=== PATIENT | male | born 2000 | race African-American/Black ===

== ENCOUNTER 2020-03-03 15:40 | Outpatient (REF) | payer BC, SELFPAY ==
[2020-03-04 04:34] LABS: HBS Num1 7.23 mIU/mL (0-7.99); HBc Num1 0.06 S/CO (0.00-0.79); HBsAGNum1 0.21 S/CO (0.00-0.99); HIV AB/AG Nonreactive (Nonreactive); HIV Num 1 0.07 S/CO (0.00-0.99); Hepatitis B Core Antibody Nonreactive (Nonreactive); Hepatitis B Surface Antigen Negative (Negative); ~Hepatitis B Surface Antibody NONREACTIVE (Nonreactive)
== END 2020-03-03 15:41 | disposition home or self-care (01) ==
LOC: HO.LAB 15:40
PROVIDERS: Visit Provider Hospitalist
DX: Z00.00 Encounter for general adult medical examination without abnormal findings (principal)
CPT/HCPCS: 86704; 86706; 87340; 87389

== ENCOUNTER → 2020-03-21 09:30 | Outpatient (REF) | payer BC, SELFPAY ==
--- NOTE | 2020-03-21 09:43 | CA_ITS ---
Transthoracic Echocardiogram Patient (Last, First, Middle): Adam Smith J Gender: Male Date of : 2000 Age: 20 Procedure Date: 03/21/2020 Procedure Type: Transthoracic Echocardiogram Location: OP Height: 167.64 cm Weight: 68.04 kg BSA: 1.77 m2 Heart Rate: bpm BP: 122 / 70 mmHg Business Banking Sales Assistant: Referring MD: Tariq Vera DO Solar Crew Member: Kristopher Alejandra MD Symptoms: CHEST PAIN Study Quality: Excellent ECG Rhythm: Sinus Conclusions: - Essentially normal study Findings Left Ventricle Normal left ventricular size, thickness, and systolic function. The visually estimated ejection fraction is between 65-70%. There is no evidence of regional wall motion abnormalities. Diastolic function is normal for age. Right Ventricle Normal right ventricular cavity size and systolic function. Atria Both atria are normal in size. There is no evidence of interatrial shunt. Aortic Valve Normal aortic valve structure and function. There is no aortic valve stenosis. There is no aortic valve regurgitation. Mitral Valve Normal mitral valve structure and function. There is trace mitral valve regurgitation. There is no mitral valve stenosis. Pulmonic Valve The pulmonic valve is likely normal. Tricuspid Valve Normal tricuspid valve structure. There is trace tricuspid valve regurgitation. The right ventricular systolic pressure is normal. The right ventricular systolic pressure is 21 mmHg. Normal right atrial pressure. There is no evidence of pulmonary hypertension. Great Vessels All visible segments of the aorta are normal in size. The visualized portions of the pulmonary artery and branches are normal. Venous The inferior vena cava is normal in size and collapses greater than 50% with inspiration. Pericardium/Pleural There is no evidence of pericardial effusion. Prior Study Comparison No prior study available for comparison. Measurements 2D Linear Measurements IVSd: 1.34 0.6-0.9/0.6-1.0 cm LVIDd: 4.52 3.9-5.3/4.2-5.9 cm LVIDd Index: 2.55 2.4-3.2/2.2-3.1 cm/m2 LVIDs: 2.80 2.0-3.6 cm LVPWd: 1.25 0.7-1.1 cm Ao Root: 2.80 2.1-3.5 cm LA Diam: 3.70 2.7-3.8/3.0-4.0 cm LAIDs Index: 2.09 1.5-2.3 cm/m2 LV Mass: 277.76 67-162/88-224 g LV Mass Index: 156.93 43-95/49-115 g/m2 LVOT Diam: 2.60 3.0+(-)1.3 cm Mitral Valve MV Pk E: 0.97 MV PK A: 0.49 MV Decel Time: 222.00 E/A: 2.00 E'Lateral: 16.80 E'Medial: 8.99 E/E' Med: 10.80 E/E' Lat: 5.80 PHT: 65.00 MVA PHT: 3.38 Decel Lewis: 4.39 Aortic Valve AoV Pk Gregor: 1.35 AoV Mn Gregor: 0.94 AoV VTI: 0.31 AoV Pk Grad: 7.00 Aov Mn Grad: 4.00 AMY Cont.VTI: 4.42 LVOT LVOT Pk Gregor: 1.19 LVOT Mn Gregor: 0.79 LVOT VTI: 0.26 LVOT Pk Grad: 6.00 LVOT Mn Grad: 3.00 LVOT Diam: 2.60 LVOT Area: 5.31 Diastolic Function MV Pk E: 0.97 MV Pk A: 0.49 E/A: 2.00 E'Medial: 8.99 E/E' Med: 10.80 E' Laterial: 16.80 E/E' Lat: 5.80 Tricuspid Valve TR Pk Gregor: 2.14 TR Pk Grad: 18.00 RA Press: 3.00 RVSP: 21.00 Great Vessels Aorta Ao Root-2D: 2.80 2.0-3.7 cm Ao Asc: 2.90 2.1-3.4 cm Pulmonary Valve PV Pk Gregor: 1.19 Peak PV Grad: 6.00 Updated in Other Vendor System with Status of Final Kristopher Alejandra MD electronically signed on 03/21/2020 2:07:26 PM with status of Final
== END ==
LOC: HO.CARD 09:30
PROVIDERS: Visit Provider Hospitalist
DX: R94.31 Abnormal electrocardiogram [ECG] [EKG] (principal)
CPT/HCPCS: 93306

== ENCOUNTER 2021-04-25 10:53 | Outpatient (REF) | payer BC, SELFPAY ==
[2021-04-25 11:48] LABS: Hematocrit 44.1 % (42.0-52.0); Hemoglobin 14.7 g/dl (14.0-18.0); Mean Corpuscular HGB Conc 33.3 g/dl (31.0-36.0); Mean Corpuscular Hemoglobin 29.2 pg (27.0-33.0); Mean Corpuscular Volume 87.5 fL (80.0-98.0); Mean Platelet Volume 9.8 fL (9.4-12.4); Platelet Count 228 X10*3/uL (160-400); Red Blood Count 5.04 X10*6/uL (4.60-5.80); Red Cell Distribution Width 13.3 % (11.0-16.0); White Blood Count 8.3 X10*3/uL (4.8-10.8)
[2021-04-25 12:22] LABS: Alanine Aminotransferase 14 U/L (0-40); Albumin Level 4.4 g/dL (3.5-5.0); Alkaline Phosphatase 73 U/L (39-117); Anion Gap 12 (12-20); Aspartate Amino Transferase 18 U/L (5-37); Bilirubin Total 1.5 mg/dL (0.0-1.0); Blood Urea Nitrogen 20 mg/dL (9-16); Calcium 9.9 mg/dL (8.4-10.2); Carbon Dioxide 27 mmol/L (22-29); Chloride 103 mmol/L (96-108); Estimated Glomerular Filt Rate > 60; Glucose Fasting 88 mg/dL (60-99); Potassium 3.8 mmol/L (3.3-5.1); Sodium 138 mmol/L (135-145); Total Protein 7.2 g/dL (6.5-8.0)
[2021-04-25 12:27] LABS: TSH reflex Free T4 2.05 uIU/mL (0.32-4.0)
== END 2021-04-25 10:54 | disposition home or self-care (01) ==
LOC: HO.LAB 10:53
PROVIDERS: PCP Physician Assistant; Visit Provider Physician Assistant
DX: Z13.29 Encounter for screening for other suspected endocrine disorder (principal)
CPT/HCPCS: 36415; 80053; 84443; 85027

== ENCOUNTER 2021-05-22 14:12 | Outpatient (REF) | payer BC, SELFPAY ==
[2021-05-22 14:31] LABS: MANUAL DIFF FLAG NO
--- NOTE | 2021-05-22 14:35 | ECG_ITS ---
Test Reason : abn ekg Blood Pressure : / mmHG Vent. Rate : 061 BPM Atrial Rate : 061 BPM P-R Int : 168 ms QRS Dur : 090 ms QT Int : 456 ms P-R-T Axes : 060 056 019 degrees QTc Int : 459 ms Normal sinus rhythm Nonspecific ST and T wave abnormality Abnormal ECG No previous ECGs available Referred By: Frederic Leonardo Electronically Signed By:NILTON QUINONES
[2021-05-22 14:40] LABS: Basophils Percent Auto 0.2 % (0-2); Eosinophils Absolute Auto 0.2 X10*3/uL (0.0-0.4); Eosinophils Percent Auto 3.4 % (0-4); Hematocrit 45.2 % (42.0-52.0); Hemoglobin 14.9 g/dl (14.0-18.0); Imm Gran Abs Auto 0.01 X10*3/uL (0.00-0.03); Imm Gran Pct Auto 0.2 % (0.0-0.4); Lymphocytes Absolute Auto 2.6 X10*3/uL (1.2-4.9); Lymphocytes Percent Auto 45.3 % (20-40); Mean Corpuscular Hemoglobin 28.7 pg (27.0-33.0); Mean Corpuscular Volume 87.1 fL (80.0-98.0); Mean Platelet Volume 9.4 fL (9.4-12.4); Monocytes Absolute Auto 0.5 X10*3/uL (0.1-1.2); Monocytes Percent Auto 7.7 % (2-11); Neutrophils Absolute Auto 2.5 x10*3/uL (2.0-8.3); Neutrophils Percent Auto 43.2 % (45-73); Platelet Count 270 X10*3/uL (160-400); Red Blood Count 5.19 X10*6/uL (4.60-5.80); White Blood Count 5.8 X10*3/uL (4.8-10.8)
[2021-05-22 15:01] LABS: Alanine Aminotransferase 16 U/L (0-40); Albumin Level 4.5 g/dL (3.5-5.0); Alkaline Phosphatase 84 U/L (39-117); Anion Gap 12 (12-20); Aspartate Amino Transferase 17 U/L (5-37); Bilirubin Total 0.9 mg/dL (0.0-1.0); Blood Urea Nitrogen 19 mg/dL (9-16); Calcium 10.4 mg/dL (8.4-10.2); Carbon Dioxide 29 mmol/L (22-29); Chloride 104 mmol/L (96-108); Estimated Glomerular Filt Rate > 60; Glucose Fasting 95 mg/dL (60-99); Potassium 4.5 mmol/L (3.3-5.1); Sodium 140 mmol/L (135-145); Total Protein 7.7 g/dL (6.5-8.0)
[2021-05-23 07:59] LABS: HBc Num1 0.14 S/CO (0.00-0.79); HBsAGNum1 0.18 S/CO (0.00-0.99); Hepatitis B Core Antibody Nonreactive (Nonreactive); Hepatitis B Surface Antigen Negative (Negative); ~HepC Num1 0.15 S/CO (0.00-0.79); ~Hepatitis C Antibody Nonreactive (Nonreactive)
[2021-05-23 08:34] LABS: HIV AB/AG Nonreactive (Nonreactive); HIV Num 1 0.06 S/CO (0.00-0.99); ~Hepatitis B Surface Antibody REACTIVE (Nonreactive)
== END 2021-05-22 14:13 | disposition home or self-care (01) ==
LOC: HO.LAB 14:12
PROVIDERS: PCP Physician Assistant; Visit Provider Hospitalist
DX: R94.31 Abnormal electrocardiogram [ECG] [EKG] (principal); Z13.1 Encounter for screening for diabetes mellitus; Z11.3 Encounter for screening for infections with a predominantly sexual mode of transmission; Z13.29 Encounter for screening for other suspected endocrine disorder; Z11.59 Encounter for screening for other viral diseases
CPT/HCPCS: 36415; 80053; 84443; 85025; 86704; 86706; 86803; 87340; 87389; 93005

== ENCOUNTER 2021-08-04 14:44 | Outpatient (REF) | payer BC, SELFPAY ==
--- NOTE | ~2021-08-04 | US_ITS ---
EXAMINATION: US ABDOMEN LIMITED CLINICAL INFORMATION: Benign lipomatous neoplasm of skin and subcutaneous tissue of trunk. COMPARISON: None TECHNIQUE: Real-time imaging of the right right mid abdomen lateral to umbilicus. FINDINGS: There is an oval-shaped isoechoic solid hypovascular lesion just deep to the skin corresponding to palpable abnormality. This measures 2.8 x 2.8 x 1.2 cm. Appearance is suggestive of a lipoma. US/US abdomen limited IMPRESSION: Probable right abdominal wall lipoma.
== END 2021-08-04 14:45 | disposition home or self-care (01) ==
LOC: HO.US 14:44
PROVIDERS: Visit Provider Physician Assistant
DX: D17.1 Benign lipomatous neoplasm of skin and subcutaneous tissue of trunk (principal)
CPT/HCPCS: 76705

== ENCOUNTER 2021-09-18 17:20 | Emergency (ER) | payer BC, SELFPAY ==
--- NOTE | 2021-09-18 | ECG_ITS ---
Test Reason : CHEST PAIN Blood Pressure : / mmHG Vent. Rate : 071 BPM Atrial Rate : 071 BPM P-R Int : 160 ms QRS Dur : 090 ms QT Int : 424 ms P-R-T Axes : 053 038 030 degrees QTc Int : 460 ms Normal sinus rhythm Normal ECG When compared with ECG of 22-MAY-2021 14:39, No significant change was found Referred By: Generic ED Physician Electronically Signed By:AMMY PRICE MD
[2021-09-18 17:24] VITALS: BP 162/97; PULSE 66; RESP 20; TEMP 36.3; O2SAT 100; BMI 27.4
[2021-09-18 17:37] LABS: MANUAL DIFF FLAG NO
[2021-09-18 17:40] LABS: Basophils Percent Auto 0.2 % (0-2); Eosinophils Absolute Auto 0.1 X10*3/uL (0.0-0.4); Hematocrit 45.7 % (42.0-52.0); Hemoglobin 15.3 g/dl (14.0-18.0); Imm Gran Abs Auto 0.02 X10*3/uL (0.00-0.03); Imm Gran Pct Auto 0.2 % (0.0-0.4); Lymphocytes Absolute Auto 3.8 X10*3/uL (1.2-4.9); Lymphocytes Percent Auto 42.2 % (20-40); Mean Corpuscular HGB Conc 33.5 g/dl (31.0-36.0); Mean Corpuscular Hemoglobin 28.5 pg (27.0-33.0); Mean Corpuscular Volume 85.1 fL (80.0-98.0); Mean Platelet Volume 9.4 fL (9.4-12.4); Monocytes Absolute Auto 0.8 X10*3/uL (0.1-1.2); Monocytes Percent Auto 9.1 % (2-11); Neutrophils Absolute Auto 4.3 x10*3/uL (2.0-8.3); Neutrophils Percent Auto 47.3 % (45-73); Platelet Count 238 X10*3/uL (160-400); Red Blood Count 5.37 X10*6/uL (4.60-5.80); Red Cell Distribution Width 13.2 % (11.0-16.0); White Blood Count 9.1 X10*3/uL (4.8-10.8)
[2021-09-18 17:58] LABS: Troponin-I High Sensitivity 25.2 ng/L (<3.5-35.0)
[2021-09-18 18:00] LABS: Potassium 4.6 mmol/L (3.3-5.1)
[2021-09-18 18:02] LABS: Anion Gap 14 (12-20); Blood Urea Nitrogen 16 mg/dL (9-16); Calcium 10.7 mg/dL (8.4-10.2); Carbon Dioxide 27 mmol/L (22-29); Chloride 102 mmol/L (96-108); Creatinine Clr Calc Pharmacy 89.8; Estimated Glomerular Filt Rate > 60; Glucose Random 100 mg/dL (60-115); Sodium 138 mmol/L (135-145)
--- NOTE | 2021-09-18 18:23 | ED_ITS ---
HPI - Chest Pain General Chief Complaint: Chest Pain Stated Complaint: Chest pain Time Seen by Provider: 09/18/21 17:36 Source: patient Mode of arrival: ambulatory Limitations: no limitations Related Data Previous Rx's Medication Instructions Recorded blood pressure test kit-large #1 ea 04/03/21 Allergies Allergy/AdvReac Type Severity Reaction Status Date / Time No Known Allergies Allergy Verified 04/03/21 11:32 Review of Systems Review of Systems: Yes all other systems are reviewed and are negative [facility] Past Medical History Surgical History No pertinent past surgical history Family History Family History Father Alive and well Mother Allergies Paternal Grandfather No problems noted. Brother Alive and well Brother Cystic fibrosis carrier Maternal Grandfather Hypertension Diabetes mellitus, type II Melanoma Social History Social History Alcohol intake: current Alcohol intake frequency: 3 or more drinks per day Alcohol type: hard liquor Patient Tobacco Use Status: Never used Tobacco Tobacco use type: Cigarette e-Cigarette/Vaping Use: Never Used Second Hand Smoke Exposure: No Substance Use Type: Marijuana Substance Use Frequency: Occasionally Advance Directives: No Advance Directives Information Provided: No Current occupational status: employed Current occupation: Works with [employer] at [employer] Physical Exam Vital Signs: Vital Signs: Last Vital Signs Temp 97.3 F 09/18/21 17:24 Pulse 68 09/18/21 18:32 Resp 17 09/18/21 18:32 BP 162/97 H 09/18/21 17:24 Pulse Ox 100 09/18/21 18:32 BMI result Body Mass Index 27.4 Appearance: Alert. Oriented X3. No acute distress. ENT: Pharynx normal. Oral Mucosa moist Neck: Normal inspection. Neck supple. CVS: Normal heart rate and rhythm. Pulses normal. Respiratory: No respiratory distress. Equal air entry bilateral, no wheezing/rales/rhonchi Abdomen: Soft and nontender. Bowel sounds are present, Skin: Skin warm and dry. Normal skin color. Normal skin turgor. Extremities: No lower extremity edema. No calf tenderness Neuro: Oriented X 3. MDM - Chest Pain MDM Narrative Medical decision making narrative: Patient with chest pain for last 3 days without any significant EKG changes had recent echo done in 04/01 which was normal patient runs about 3 4 miles daily and today also here and without any significant increasing chest pain no family history of coronary artery disease patient will discharge patient home advised to follow with PCP Lab Data Attestation: I reviewed the patient's lab results. Result diagrams: 09/18/21 17:33 09/18/21 17:33 Labs: Lab Results 09/18/21 09/18/21 09/18/21 Range/Units 17:33 17:33 17:33 WBC 9.1 (4.8-10.8) X10*3/uL RBC 5.37 (4.60-5.80) X10*6/uL Hgb 15.3 (14.0-18.0) g/dl Hct 45.7 (42.0-52.0) % MCV 85.1 (80.0-98.0) fL MCH 28.5 (27.0-33.0) pg MCHC 33.5 (31.0-36.0) g/dl RDW 13.2 (11.0-16.0) % Plt Count 238 (160-400) X10*3/uL MPV 9.4 (9.4-12.4) fL Immature Gran % (Auto) 0.2 (0.0-0.4) % Neut % (Auto) 47.3 (45-73) % Lymph % (Auto) 42.2 H (20-40) % [place] % (Auto) 9.1 (2-11) % Eos % (Auto) 1.0 (0-4) % Baso % (Auto) 0.2 (0-2) % Lymph # (Auto) 3.8 (1.2-4.9) X10*3/uL [place] # (Auto) 0.8 (0.1-1.2) X10*3/uL Eos # (Auto) 0.1 (0.0-0.4) X10*3/uL Baso # (Auto) 0.0 (0.0-0.2) X10*3/uL Abs Immat Gran (auto) 0.02 (0.00-0.03) X10*3/uL Absolute Neuts (auto) 4.3 (2.0-8.3) x10*3/uL Absolute Nucleated RBC 0.000 (0.0-0.012) X10*3/uL Nucleated RBC % (auto) 0.0 (0.0-0.2) /100WBC Sodium 138 (135-145) mmol/L Potassium 4.6 (3.3-5.1) mmol/L Chloride 102 (96-108) mmol/L Carbon Dioxide 27 (22-29) mmol/L Anion Gap 14 (12-20) BUN 16 (9-16) mg/dL Creatinine 1.25 (0.5-1.4) mg/dL Estim Creat Clear Calc 89.8 Estimated GFR > 60 Random Glucose 100 (60-115) mg/dL Calcium 10.7 H (8.4-10.2) mg/dL Troponin I High Sens 25.2 (<3.5-35.0) ng/L C-Reactive Protein 0.05 (< or = 0.50) mg/dL 09/18/21 Range/Units 19:19 WBC (4.8-10.8) X10*3/uL RBC (4.60-5.80) X10*6/uL Hgb (14.0-18.0) g/dl Hct (42.0-52.0) % MCV (80.0-98.0) fL MCH (27.0-33.0) pg MCHC (31.0-36.0) g/dl RDW (11.0-16.0) % Plt Count (160-400) X10*3/uL MPV (9.4-12.4) fL Immature Gran % (Auto) (0.0-0.4) % Neut % (Auto) (45-73) % Lymph % (Auto) (20-40) % [place] % (Auto) (2-11) % Eos % (Auto) (0-4) % Baso % (Auto) (0-2) % Lymph # (Auto) (1.2-4.9) X10*3/uL [place] # (Auto) (0.1-1.2) X10*3/uL Eos # (Auto) (0.0-0.4) X10*3/uL Baso # (Auto) (0.0-0.2) X10*3/uL Abs Immat Gran (auto) (0.00-0.03) X10*3/uL Absolute Neuts (auto) (2.0-8.3) x10*3/uL Absolute Nucleated RBC (0.0-0.012) X10*3/uL Nucleated RBC % (auto) (0.0-0.2) /100WBC Sodium (135-145) mmol/L Potassium (3.3-5.1) mmol/L Chloride (96-108) mmol/L Carbon Dioxide (22-29) mmol/L Anion Gap (12-20) BUN (9-16) mg/dL Creatinine (0.5-1.4) mg/dL Estim Creat Clear Calc Estimated GFR Random Glucose (60-115) mg/dL Calcium (8.4-10.2) mg/dL Troponin I High Sens 29.9 (<3.5-35.0) ng/L C-Reactive Protein (< or = 0.50) mg/dL ECG Data ECG #1: Attestation: I personally reviewed and interpreted this ECG as follows: Interpretation: Normal sinus rhythm heart rate 61 beats per minute nonspecific ST T wave changes no acute change from previous EKG no acute ischemia Discharge Plan Discharge Clinical Impression: Atypical chest pain Patient Disposition: Home, Self-Care Instructions: Chest Wall Pain (ED) Additional Instructions: Your chest pain is likely not from the heart Follow-up with PCP/datastage architect if pain continues Prescriptions: No Action (DME) blood pressure test kit-large Kit See Rx Instructions .Route Qty: 1 0RF Rx Instructions: As directed
[2021-09-18 18:32] VITALS: PULSE 68; PULSE 71; RESP 17; O2SAT 100
--- NOTE | 2021-09-18 18:36 | PC.NURSE ---
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 pt still been working out, went for a run today where he is c/o left sided chest pain that has not resolved. no sob, mild pain with inspiration
--- NOTE | 2021-09-18 19:12 | PC.NURSE ---
pt reports that he has been drinking 1 energy drink daily
[2021-09-18 19:20] LABS: C Reactive Protein 0.05 mg/dL (< or = 0.50)
[2021-09-18 19:43] LABS: Troponin-I High Sensitivity 29.9 ng/L (<3.5-35.0)
== END 2021-09-18 20:02 | disposition home or self-care (01) ==
PROVIDERS: Emergency Provider Internal Medicine; PCP Physician Assistant
DX: R07.89 Other chest pain (principal)
CPT/HCPCS: 36415; 80048; 84484; 85025; 86140; 93005; 99283; 99285

== ENCOUNTER 2022-07-11 13:52 | Outpatient (REF) | payer BC, SELFPAY ==
[2022-07-11 14:58] LABS: Hematocrit 46.7 % (42.0-52.0); Hemoglobin 15.5 g/dl (14.0-18.0); Mean Corpuscular HGB Conc 33.2 g/dl (31.0-36.0); Mean Corpuscular Hemoglobin 28.9 pg (27.0-33.0); Mean Platelet Volume 10.7 fL (9.4-12.4); Platelet Count 256 X10*3/uL (160-400); Red Blood Count 5.37 X10*6/uL (4.60-5.80); Red Cell Distribution Width 13.7 % (11.0-16.0); White Blood Count 9.1 X10*3/uL (4.8-10.8)
[2022-07-11 16:58] LABS: TSH reflex Free T4 1.19 uIU/mL (0.32-4.0)
[2022-07-11 17:58] LABS: Alanine Aminotransferase 27 U/L (0-40); Albumin Level 5.1 g/dL (3.5-5.0); Alkaline Phosphatase 93 U/L (39-117); Anion Gap 18 (12-20); Aspartate Amino Transferase 24 U/L (5-37); Bilirubin Total 2.3 mg/dL (0.0-1.0); Blood Urea Nitrogen 20 mg/dL (9-16); Calcium 10.5 mg/dL (8.4-10.2); Carbon Dioxide 28 mmol/L (22-29); Chloride 99 mmol/L (96-108); Estimated Glomerular Filt Rate 57; Glucose Fasting 51 mg/dL (60-99); Sodium 141 mmol/L (135-145)
[2022-07-13 08:58] LABS: HBS Num1 31.96 mIU/mL (0-7.99); HBc Num1 0.07 S/CO (0.00-0.79); HBsAGNum1 0.33 S/CO (0.00-0.99); HIV AB/AG Nonreactive (Nonreactive); HIV Num 1 0.07 S/CO (0.00-0.99); Hepatitis B Core Antibody Nonreactive (Nonreactive); Hepatitis B Surface Antigen Negative (Negative); ~HepC Num1 0.17 S/CO (0.00-0.79); ~Hepatitis B Surface Antibody REACTIVE (Nonreactive); ~Hepatitis C Antibody Nonreactive (Nonreactive)
== END 2022-07-11 13:53 | disposition home or self-care (01) ==
LOC: HO.LAB 13:52
PROVIDERS: Physician Assistant; PCP Internal Medicine; Visit Provider Internal Medicine
DX: Z20.2 Contact with and (suspected) exposure to infections with a predominantly sexual mode of transmission (principal); Z13.1 Encounter for screening for diabetes mellitus; Z13.29 Encounter for screening for other suspected endocrine disorder; Z86.79 Personal history of other diseases of the circulatory system
CPT/HCPCS: 36415; 80053; 84443; 85027; 86704; 86706; 86803; 87340; 87389

== ENCOUNTER 2022-11-26 15:56 | Outpatient (AMB) | payer BC, SELFPAY ==
[2022-11-26 15:57] VITALS: BP 134/70; PULSE 73; O2SAT 97; BMI 28.0
--- NOTE | 2022-11-26 15:57 | MHC.PC.OV ---
Vital Signs 11/26/22 15:57 Height 5 ft 6 in Weight 173 lb 6 oz BMI 28.0 BP 134/70 Blood Pressure Location Lt brachial Position Sitting Pulse 73 Pulse Source Pulse Oximeter Pulse Oximetry (%) 97 Oxygen Delivery Method Room Air Intake Visit Reasons: Pain underneath left rib Occupational Therapy Asst Required: No Accompanied by: Self / Same As Patient Allergies No Known Allergies Allergy (Verified 11/26/22 16:12) Medication List - Last Reconciled 11/26/22 by Frederic Leonardo PA-C blood pressure test kit-large As directed Tobacco use date assessed: 11/26/22 Dental Screening Dental Screen Date: 11/26/22 Did you have a dental visit in the last 12 months?: Yes Did you have a dental problem in the last 6 months where you did not have access to dental care?: No Was dental information given to patient?: Patient has dentist HPI Pain underneath left rib HPI Details Patient is a 22-year-old male here today for problem visit. Patient reports having left upper quadrant abdominal pain/ deep left rib pain over the last 4 weeks. He denies any notable trauma to his left ribs. 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 He otherwise denies any shortness of breath, tenderness to palpation. He reports the pain is only evident in certain movements of his torso. The pain does not radiate into his back or to the midline of his torso. REPLACED BY [facility] Surgical History No pertinent past surgical history Family History Father Alive and well Mother Allergies Paternal Grandfather No problems noted. Brother Alive and well Brother Cystic fibrosis carrier Maternal Grandfather Hypertension Diabetes mellitus, type II Melanoma Social History Alcohol intake: current Alcohol intake frequency: 3 or more drinks per day Alcohol type: hard liquor Patient Tobacco Use Status: Never used Tobacco Tobacco use type: Cigarette e-Cigarette/Vaping Use: Never Used Second Hand Smoke Exposure: No Substance Use Type: Marijuana Current occupational status: employed Current occupation: Works with [employer] Cognitive needs: No Hearing needs: No Vision needs: No Questionnaire PHQ-9 Over the last 2 weeks, how often have you been bothered by any of the following problems? 1. Little interest or pleasure in doing things: not at all 2. Feeling down, depressed, or hopeless: not at all 3. Trouble falling or staying asleep, or sleeping too much: not at all 4. Feeling tired or having little energy: not at all 5. Poor appetite or overeating: not at all 6. Feeling bad about yourself - or that you are a failure or have let yourself or your family down: not at all 7. Trouble concentrating on things, such as reading the newspaper or watching television: not at all 8. Moving or speaking so slowly that other people could have noticed. Or the opposite - being so fidgety or restless that you have been moving around a lot more than usual: not at all 9. Thoughts that you would be better off or of hurting yourself in some way: not at all Total score: 0 Depression Screening Interpretation: Negative Source: Developed by Drs. Dirk Wilson, Yanet Castañeda, Rene Bush and colleagues, with an educational tash from [employer]. Thrive Questionnaire Date Thrive assessed: 11/26/22 I am a: Patient What is your living situation today?: I have a steady place to live Within the past 12 months, did the food you bought not last and you didn't have the money to get more?: Never true Within the past 12 months, did you worry whether your food would run out before you got money to buy more?: Never true Do you have trouble paying for medicines?: No Do you have trouble getting transportation to medical appointments?: No Do you have trouble paying your heating and electricity bill?: No Do you have trouble taking care of your child, family member or friend?: No Do you have trouble with day-to-day activities such as bathing, preparing meals, shopping, managing finances, etc.?: No Are you currently unemployed and looking for a job?: No Are you interested in more education?: No Please select the resources that you would like help with: None Currently or been in a relationship where the following occur: no concerns reported AUDIT C Alcohol Use Questionnaire (AUDIT-C) 1. How often do you have a drink containing alcohol?: 2-4 times a month 2. How many drinks containing alcohol do you have on a typical day when you are drinking?: 3 or 4 3. How often do you have six or more drinks on one occasion?: Never Total Score: 3 EMILY-7 AMB Questionnaire EMILY-7 Date EMILY - 7 assessed: 11/26/22 Feeling nervous, anxious, or on edge: 0 = Not at all Not being able to stop or control worryin = Not at all Worrying too much about different things: 0 = Not at all Trouble relaxin = Not at all Being so restless that it is hard to sit still: 0 = Not at all Becoming easily annoyed or irritable: 0 = Not at all Feeling afraid as if something awful might happen: 0 = Not at all Total EMILY-7 score (0-4 normal; 5-9 mild; 10-14 moderate; 15-21 severe): 0 Source: Developed by Drs. Dirk Wilson, Yanet Castañeda, Rene Bush and colleagues, with an educational tash from [employer]. EMILY-7 Assessment Billing EMILY-7 Assessment Tool: EMILY-7 Assessment 68842 Review of Systems Const Denies headache(s) Eyes Denies loss of vision ENT Denies vertigo, Denies dizziness, Denies headache(s) and Denies sore throat Card Denies chest pain, Denies leg edema and Denies lightheadedness Resp Denies cough, Denies hemoptysis and Denies wheezing GI Denies abdominal pain, Denies melena, Denies constipation, Denies diarrhea and Denies vomiting Denies dysuria, Denies urinary frequency and Denies urinary urgency Musc Denies arthralgias, Denies joint swelling, Denies numbness and Denies tingling Neuro Denies Abnormal speech present, Denies behavioral changes, Denies vertigo, Denies dizziness, Denies headache(s), Denies loss of vision, Denies memory loss, Denies numbness and Denies tingling Psych Denies anxiety, Denies behavioral changes, Denies depression, Denies memory loss and Denies panic attacks [place]/Lymph Denies easy bleeding and Denies easy bruising Aller/Immun Denies wheezing Physical exam (Primary Care) Vital Signs: Last Vital Signs Pulse 73 11/26/22 15:57 BP 134/70 07/17/23 15:57 Pulse Ox 97 11/26/22 15:57 Oxygen Delivery Method Room Air 11/26/22 15:57 BMI result Body Mass Index 28.0 Tobacco/Smoking Status: Tobacco use Status Tobacco use date assessed 11/26/22 11/26/22 16:02 Patient Tobacco Use Status Never used Tobacco 11/26/22 16:02 Tobacco use type Cigarette 11/26/22 16:02 e-Cigarette/Vaping Use Never Used 11/26/22 16:02 PHQ-9: PHQ-9 Score PHQ-9: Total score 0 11/26/22 16:14 Depression Screening Interpretation: Negative Thrive Assessment: Date of Thrive Assessment Date Thrive assessed 11/26/22 11/26/22 16:02 Currently or been in a relationship where the following occur: no concerns reported Const General: healthy appearing, no acute distress, alert and awake Nutritional Appearance: well nourished Orientation/consciousness: oriented to person, oriented to place and oriented to time HENMT Ears: TM's normal bilaterally General nose exam: Normal nasal mucous membranes and turbinates present Eyes Conjunctivae: conjunctivae normal Sclerae: sclerae normal Pupils: Equal, round and reactive pupils present Neck Neck: Yes no lymphadenopathy and Yes no JVD Thyroid: Thyroid normal Carotids: no bruits Chest Chest/axillae images: 1. NO PALPABLE MASS, RASHES HER ERYTHEMA NOTED. NO TENDERNESS TO PALPATION TO SPECIFIC REGION OF HIS INTERMITTENT PAIN/SORENESS. Resp Effort & Inspection: normal respiratory effort and not tachypneic Auscultation: no crackles, no rales, no rhonchi and no wheezes Cardio Rate: regular rate Rhythm: regular rhythm Heart sounds: no murmurs and normal S1 and S2 GI Palpation (GI): Soft to palpation, nontender, no hepatomegaly and no splenomegaly Auscultation: normal bowel sounds Skin General skin exam: no rashes or lesions noted and dry skin Neuro General: oriented to person, oriented to place and oriented to time Cranial nerves: Yes Equal, round and reactive pupils present Speech: No Abnormal speech present Gait exam (Neuro): Normal gait present Motor exam (neuro): no tremor noted Extrem Right upper extremity: full ROM Left upper extremity: full ROM Right lower extremity: full ROM; no edema Left lower extremity: full ROM; no edema Psych Mental Status: mental status grossly normal Speech and movement: Normal speech and movement present Affect: normal affect Attitude: cooperative Thought process: Normal thought process present Assessment and Plan Assessment & Plan (1) Rib pain on left side: Code(s): R07.81 - Pleurodynia Plan: Unclear etiology to patient's sided rib pain though quite like intercostal muscle strain due to his physical workouts. Will send for ultrasound of the left upper abdominal quadrant to evaluate his spleen to rule out splenomegaly. Will send for x-ray of left ribs and lung to rule out any occult rib fractures. Otherwise advised to use cool compress and NSAID as needed for pain and soreness. (2) LUQ abdominal pain: Code(s): R10.12 - Left upper quadrant pain Orders: Orders Basic Metabolic Panel 11/26/22 R10.12 - Left upper quadrant pain Complete Blood Count no Diff 11/26/22 R10.12 - Left upper quadrant pain US abdomen limited 11/26/22 R10.12 - Left upper quadrant pain XR ribs LT min 3V w CXR1V 11/26/22 R07.81 - Pleurodynia Coding Level of Care Code Est Pt Level 3 (23530) Diagnoses Rib pain on left side R07.81 LUQ abdominal pain R10.12 Additional Codes EMILY-7 Assessment Billing - EMILY-7 Assessment Tool: EMILY-7 Assessment [id number] ([id number])
== END 2022-11-26 16:29 | disposition home or self-care (01) ==
PROVIDERS: PCP Internal Medicine; Visit Provider Physician Assistant
DX: R07.81 Pleurodynia (principal); R10.12 Left upper quadrant pain
CPT/HCPCS: 99213

== ENCOUNTER 2022-11-28 13:44 | Outpatient (REF) | payer BC, SELFPAY ==
--- NOTE | ~2022-11-28 | XR_ITS ---
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 COMPARISON: None available. TECHNIQUE: 4 views of the left ribs were obtained. FINDINGS: There is no gross pneumothorax. Heart size is normal. Radiopaque marker placed to indicate the area of concern as indicated by the patient overlying the lower left ribs. No displaced left rib fracture is identified. XR/XR ribs LT min 3V w CXR1V IMPRESSION: No displaced lower left rib fractures.
[2022-11-28 14:38] LABS: Hematocrit 44.8 % (42.0-52.0); Hemoglobin 14.5 g/dl (14.0-18.0); Mean Corpuscular HGB Conc 32.4 g/dl (31.0-36.0); Mean Corpuscular Hemoglobin 28.2 pg (27.0-33.0); Mean Corpuscular Volume 87.2 fL (80.0-98.0); Mean Platelet Volume 10.2 fL (9.4-12.4); Platelet Count 242 X10*3/uL (160-400); Red Blood Count 5.14 X10*6/uL (4.60-5.80); Red Cell Distribution Width 13.5 % (11.0-16.0)
[2022-11-29 02:43] LABS: Anion Gap 13 (12-20); Blood Urea Nitrogen 18 mg/dL (9-16); Calcium 10.4 mg/dL (8.4-10.2); Carbon Dioxide 26 mmol/L (22-29); Chloride 102 mmol/L (96-108); Estimated Glomerular Filt Rate > 60; Glucose Random 79 mg/dL (60-115); Potassium 4.1 mmol/L (3.3-5.1); Sodium 137 mmol/L (135-145)
== END 2022-11-28 13:45 | disposition home or self-care (01) ==
LOC: HO.LAB 13:44
PROVIDERS: PCP Physician Assistant; Visit Provider Physician Assistant
DX: R10.12 Left upper quadrant pain (principal); R07.81 Pleurodynia
CPT/HCPCS: 36415; 71101; 80048; 85027

== ENCOUNTER 2022-12-07 08:25 | Outpatient (REF) | payer BC, SELFPAY ==
--- NOTE | ~2022-12-07 | US_ITS ---
EXAMINATION: US ABDOMEN LIMITED CLINICAL INFORMATION: Left upper quadrant pain. COMPARISON: Ultrasound abdomen limited 08/04/2021. TECHNIQUE: Real-time imaging of the left upper and left lower quadrants. FINDINGS: Targeted ultrasound images were obtained by the auto customize painter of the area of concern as indicated by the patient in the left upper quadrant. Radiologist was not in attendance. Images were later provided for interpretation. Limited visualization due to bowel gas. No discrete mass or fluid collection identified in the area of concern as indicated by the patient in the left upper and left lower quadrants, although visualization limited due to bowel gas. Spleen measures 10.1 cm and is unremarkable. Left kidney measures 10.2 cm. No hydronephrosis. No renal calculi. Renal cortical thickness is normal. US/US abdomen limited IMPRESSION: 1. No discrete mass or fluid collection identified in the area of concern as indicated by the patient in the left upper and left lower quadrants, although visualization limited due to bowel gas. CT scan could be considered for better visualization. 2. Spleen is unremarkable. 3. Left kidney demonstrates no hydronephrosis and no renal calculi.
== END 2022-12-07 08:26 | disposition home or self-care (01) ==
LOC: HO.US 08:25
PROVIDERS: PCP Physician Assistant; Visit Provider Physician Assistant
DX: R10.12 Left upper quadrant pain (principal)
CPT/HCPCS: 76705

== ENCOUNTER 2023-07-11 14:26 | Outpatient (AMB) | payer BC, SELFPAY ==
[2023-07-11 14:50] VITALS: BP 124/70; PULSE 64; RESP 16; BMI 27.8
--- NOTE | 2023-07-11 14:50 | MHC.PC.OV ---
Vital Signs 07/11/23 14:50 Height 5 ft 6 in Weight 172 lb 6 oz BMI 27.8 BP 124/70 Blood Pressure Location Lt brachial Position Sitting Respiration 16 Pulse 64 Pulse Source Pulse Oximeter Oxygen Delivery Method Room Air Intake Visit Reasons: Annual exam Intake Note: Patient is here today for a physical. 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 Accompanied by: Self / Same As Patient Allergies No Known Allergies Allergy (Verified 07/11/23 15:02) Medication List - Last Reconciled 07/11/23 by Frederic Leonardo PA-C blood pressure test kit-large As directed Tobacco use date assessed: 07/11/23 Dental Screening Dental Screen Date: 07/11/23 Did you have a dental visit in the last 12 months?: Yes Did you have a dental problem in the last 6 months where you did not have access to dental care?: No Was dental information given to patient?: Patient has dentist HPI Annual exam HPI Details Patient is a 23 year-old male here today for annual physical.? Patient has a past medical history significant for elevated blood pressure readings otherwise healthy. 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 He needs hepatitis and HIV testing before his flight. Was noted previously to elevated blood pressure at last office visit, today blood pressure much improved. Vaccine:? Needs up-to-date tetanus ( is considering) , decline FLu and COVID vacc. [facility] Surgical History No pertinent past surgical history Family History Father Alive and well Mother Allergies Paternal Grandfather No problems noted. Brother Alive and well Brother Cystic fibrosis carrier Maternal Grandfather Hypertension Diabetes mellitus, type II Melanoma Social History (Updated 07/11/23 @ 15:07 by Frederic Leonardo PA-C) Housing: House Alcohol intake: current Alcohol intake frequency: 3 or more drinks per day Alcohol type: hard liquor Patient Tobacco Use Status: Never used Tobacco Tobacco use type: Cigarette e-Cigarette/Vaping Use: Never Used Second Hand Smoke Exposure: No Substance Use Type: Marijuana service: No Current occupational status: employed Current occupation: Works with [employer] Cognitive needs: No Hearing needs: No Vision needs: No Questionnaire PHQ-9 Over the last 2 weeks, how often have you been bothered by any of the following problems? 1. Little interest or pleasure in doing things: not at all 2. Feeling down, depressed, or hopeless: not at all 3. Trouble falling or staying asleep, or sleeping too much: not at all 4. Feeling tired or having little energy: not at all 5. Poor appetite or overeating: not at all 6. Feeling bad about yourself - or that you are a failure or have let yourself or your family down: not at all 7. Trouble concentrating on things, such as reading the newspaper or watching television: not at all 8. Moving or speaking so slowly that other people could have noticed. Or the opposite - being so fidgety or restless that you have been moving around a lot more than usual: not at all 9. Thoughts that you would be better off or of hurting yourself in some way: not at all Total score: 0 Depression Screening Interpretation: Negative Depression Screening Done: Yes 05604 - PHQ-9 Billing: Yes Source: Developed by Drs. Dirk Wilson, Yanet Castañeda, Rene Bush and colleagues, with an educational tash from [employer]. Thrive Questionnaire Date Thrive assessed: 07/11/23 I am a: Patient What is your living situation today?: I have a steady place to live Within the past 12 months, did the food you bought not last and you didn't have the money to get more?: Never true Within the past 12 months, did you worry whether your food would run out before you got money to buy more?: Never true Do you have trouble paying for medicines?: No Do you have trouble getting transportation to medical appointments?: No Do you have trouble paying your heating and electricity bill?: No Do you have trouble taking care of your child, family member or friend?: No Do you have trouble with day-to-day activities such as bathing, preparing meals, shopping, managing finances, etc.?: No Are you currently unemployed and looking for a job?: No Are you interested in more education?: No Please select the resources that you would like help with: None Currently or been in a relationship where the following occur: no concerns reported THRIVE Score: 0 AUDIT C Alcohol Use Questionnaire (AUDIT-C) 1. How often do you have a drink containing alcohol?: Monthly or less 2. How many drinks containing alcohol do you have on a typical day when you are drinking?: 1 or 2 3. How often do you have six or more drinks on one occasion?: Never Total Score: 1 EMILY-7 AMB Questionnaire EMILY-7 Date EMILY - 7 assessed: 07/11/23 Feeling nervous, anxious, or on edge: 0 = Not at all Not being able to stop or control worryin = Not at all Worrying too much about different things: 0 = Not at all Trouble relaxin = Not at all Being so restless that it is hard to sit still: 0 = Not at all Becoming easily annoyed or irritable: 0 = Not at all Feeling afraid as if something awful might happen: 0 = Not at all Total EMILY-7 score (0-4 normal; 5-9 mild; 10-14 moderate; 15-21 severe): 0 Source: Developed by Drs. Dirk Wilson, Yanet Castañeda, Rene Bush and colleagues, with an educational tash from [employer]. EMILY-7 Assessment Billing EMILY-7 Assessment Tool: EMILY-7 Assessment 77843 Review of Systems Const Denies body aches, Denies chills, Denies excessive sweating, Denies fatigue, Denies fever(s) and Denies headache(s) Eyes Denies blurry vision ENT Denies dysphagia, Denies vertigo, Denies dizziness, Denies headache(s), Denies hearing loss and Denies tinnitus Card Denies chest pain, Denies chest pain with activity, Denies syncope, Denies irregular heart rhythm and Denies dyspnea Resp Denies chest congestion, Denies cough, Denies hemoptysis, Denies dyspnea and Denies wheezing GI Denies abdominal pain, Denies melena, Denies hematochezia, Denies coffee ground emesis, Denies dysphagia, Denies diarrhea, Denies nausea and Denies vomiting Denies difficulty urinating, Denies dysuria, Denies urinary frequency, Denies urinary hesitancy and Denies urinary urgency Musc Denies arthralgias, Denies limited range of motion, Denies muscle cramps and Denies muscle weakness Skin/Breast Denies rash and Denies skin ulcer Neuro Denies Abnormal speech present, Denies confusion, Denies vertigo, Denies dizziness, Denies syncope, Denies headache(s), Denies memory loss and Denies seizure-like activity Psych Denies anxiety, Denies confusion, Denies depression, Denies memory loss, Denies panic attacks and Denies paranoia Endo Denies excessive sweating, Denies fatigue, Denies flushing, Denies polydipsia and Denies polyuria Aller/Immun Denies wheezing Physical exam (Primary Care) Vital Signs: Last Vital Signs Pulse 64 07/11/23 14:50 Resp 16 07/11/23 14:50 BP 124/70 07/11/23 14:50 Oxygen Delivery Method Room Air 07/11/23 14:50 BMI result Body Mass Index 27.8 Tobacco/Smoking Status: Tobacco use Status Tobacco use date assessed 07/11/23 07/11/23 15:01 Patient Tobacco Use Status Never used Tobacco 07/11/23 14:54 Tobacco use type Cigarette 07/11/23 14:54 e-Cigarette/Vaping Use Never Used 07/11/23 14:54 PHQ-9: PHQ-9 Score PHQ-9: Total score 0 07/11/23 14:58 Depression Screening Interpretation: Negative Thrive Assessment: Date of Thrive Assessment Date Thrive assessed 07/11/23 07/11/23 14:58 Currently or been in a relationship where the following occur: no concerns reported Const General: cooperative, comfortable, no acute distress, alert and awake; No confusion Orientation/consciousness: oriented to person, oriented to place, patient oriented x3 and No confusion HENMT Head: Yes normocephalic Ears: external ears normal and TM's normal bilaterally Face and sinus: No sinus tenderness Mouth: Normal oral and palatal mucosa present and tongue normal Teeth and gingiva: dentition normal and gingiva normal Throat: Yes posterior oropharynx normal, Yes tonsils normal and Yes uvula midline Eyes Conjunctivae: conjunctivae normal Sclerae: sclerae normal Pupils: Equal, round and reactive pupils present EOM: EOMs intact bilaterally Direct Ophthalmoscopy: No no photophobia Neck Neck: Yes no lymphadenopathy, No tender and Yes no JVD Thyroid: Thyroid normal Carotids: no bruits Chest Chest palpation & inspection: no tenderness Resp Effort & Inspection: normal respiratory effort, no audible wheezes, not labored and no stridor Auscultation: no crackles, no rales, no rhonchi and no wheezes Cardio Jugular venous distension: no JVD Rate: regular rate, not bradycardic and not tachycardic Rhythm: regular rhythm Bruits: no carotid bruits Peripheral pulses: Peripheral pulses 2+ throughout GI Inspection: Yes normal to inspection, No abdominal wall ecchymosis and No visible herniation Palpation (GI): Soft to palpation, nontender, no guarding, not rigid and No hepatosplenomegaly present Auscultation: normoactive bowel sounds Abdomen image: 1. SMALL PALPABLE LUMP OVER MID ABDOMEN. General: Yes no CVA tenderness Back/Spine/Pelvis Back: no CVA tenderness and No back tenderness Cervical Spine: cervical ROM normal Thoracic/Lumbar Spine: thoracic and lumbar spine normal to inspection, straight leg raise negative bilaterally, No thoraco-lumbar ROM limited and No lumbar spinal tenderness Skin Lesions: no lesions Rashes: no rashes Wounds: no wounds Neuro General: oriented to person, oriented to place, patient oriented x3, CN's II-XI intact bilaterally and No confusion Cranial nerves: Yes Equal, round and reactive pupils present and Yes Normal accommodation reflex present Cognition (Neuro): normal cognition Speech: No Abnormal speech present Gait exam (Neuro): Normal gait present Motor exam (neuro): 5/5 motor strength present throughout Extrem Right upper extremity: full ROM; no cyanosis Left upper extremity: full ROM; no cyanosis Right lower extremity: no edema Left lower extremity: no edema Psych Appearance: grossly normal Mental Status: mental status grossly normal Affect: normal affect Attitude: cooperative Thought process: Normal thought process present Assessment and Plan Assessment & Plan (1) Physical exam: Code(s): Z00.00 - Encounter for general adult medical examination without abnormal findings (2) Elevated blood pressure reading: Code(s): R03.0 - Elevated blood-pressure reading, without diagnosis of hypertension Plan: Patient has a history of elevated blood pressure readings. Has not needed any blood pressure medication. 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 Today's blood pressure in office acceptable. (3) Lipoma of abdominal wall: Code(s): D17.1 - Benign lipomatous neoplasm of skin and subcutaneous tissue of trunk Plan: Would like removal of lipoma from the abdominal wall. Will refer to general surgeon for removal. Orders: Orders Hepatitis B,C Profile Today Z11.3 - Encounter for screening for infections with a predominantly sexual mode of transmission HIV Ab/Ag Today Z11.3 - Encounter for screening for infections with a predominantly sexual mode of transmission Comprehensive [place]. Panel Fast 2 Months I10 - Essential (primary) hypertension Referrals General Surgery Referral D17.1 - Benign lipomatous neoplasm of skin and subcutaneous tissue of trunk Coding Level of Care Code Est Pt Prev Care 18-39y(37668) Diagnoses Physical exam Z00.00 Elevated blood pressure reading R03.0 Lipoma of abdominal wall D17.1 Additional Codes EMILY-7 Assessment Billing - EMILY-7 Assessment Tool: EMILY-7 Assessment [id number] ([id number])
== END 2023-07-11 15:19 | disposition home or self-care (01) ==
PROVIDERS: Visit Provider Physician Assistant
DX: Z00.00 Encounter for general adult medical examination without abnormal findings (principal); R03.0 Elevated blood-pressure reading, without diagnosis of hypertension; D17.1 Benign lipomatous neoplasm of skin and subcutaneous tissue of trunk
CPT/HCPCS: 99395

== ENCOUNTER 2023-07-11 15:21 | Outpatient (REF) | payer BC, SELFPAY ==
[2023-07-12 04:44] LABS: HBS Num1 32.32 mIU/mL (0-7.99); HBc Num1 0.08 S/CO (0.00-0.79); HBsAGNum1 0.36 S/CO (0.00-0.99); HIV AB/AG Nonreactive (Nonreactive); HIV Num 1 0.05 S/CO (0.00-0.99); Hepatitis B Core Antibody Nonreactive (Nonreactive); Hepatitis B Surface Antigen Negative (Negative); ~HepC Num1 0.13 S/CO (0.00-0.79); ~Hepatitis B Surface Antibody REACTIVE (Nonreactive); ~Hepatitis C Antibody Nonreactive (Nonreactive)
== END 2023-07-11 15:22 | disposition home or self-care (01) ==
LOC: HO.LAB 15:21
PROVIDERS: PCP Physician Assistant; Visit Provider Physician Assistant
DX: Z11.3 Encounter for screening for infections with a predominantly sexual mode of transmission (principal); Z11.4 Encounter for screening for human immunodeficiency virus [HIV]
CPT/HCPCS: 36415; 86704; 86706; 86803; 87340; 87389

== ENCOUNTER 2023-08-13 10:06 | Outpatient (AMB) | payer BC, SELFPAY ==
--- NOTE | 2023-08-13 10:07 | A.OFFVIS_ITS ---
Intake Vital Signs 08/13/23 10:10 Height 5 ft 6 in Weight 173 lb BMI 27.9 BP 154/79 H Blood Pressure Location Rt brachial Position Sitting Pulse 72 Intake Visit Reasons: Lipoma~ Abd Intake Note: Patient referred by PCP Frederic Leonardo for lipoma on abd. Patient c/o: enlarging in size. Denies pain. 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 He has had this several years time. His increasing in size, become more symptomatic. He would like to have it excised. No other such lesions elsewhere. Chart was reviewed and patient evaluated. [facility] Surgical History No pertinent past surgical history Family History Father Alive and well Mother Allergies Paternal Grandfather No problems noted. Brother Alive and well Brother Cystic fibrosis carrier Maternal Grandfather Hypertension Diabetes mellitus, type II Melanoma Social History Housing: House Alcohol intake: current Alcohol intake frequency: 3 or more drinks per day Alcohol type: hard liquor Patient Tobacco Use Status: Never used Tobacco Tobacco use type: Cigarette e-Cigarette/Vaping Use: Never Used Second Hand Smoke Exposure: No Substance Use Type: Marijuana service: No Current occupational status: employed Current occupation: Works with [employer] Cognitive needs: No Hearing needs: No Vision needs: No Physical Exam Vital Signs: Last Vital Signs Pulse 72 08/13/23 10:10 BP 154/79 H 08/13/23 10:10 BMI result Body Mass Index 27.9 GI Other: Large proximally 5 x 4 cm right para-Umbilical large lipoma. Otherwise benign abdomen with multiple tattoos throughout Office Procedures Excision Details: Risks, benefits, alternatives of excision of anterior abdominal wall large lipoma were reviewed with the patient included but not limited to bleeding, infection, recurrence, numbness, pain, scarring and the patient wished to proceed. All questions answered. Consent signed. After appropriate positioning, patient underwent 1% lidocaine and Betadine prep were uneventful transverse incision was made over the lipoma of the mid right abdominal wall with its uneventfully enucleation. Specimen measured approximately 5 x 4 cm. Specimen sent to pathology. Wound was irrigated, secured hemostasis, and closed using running subcuticular 3-0 Vicryl suture followed by Steri-Strips and sterile dressings. Patient tolerated procedure well. [id number]-[id number]/arms/legs >4cm Procedure code (CPT) selection complete Office Meds lidocaine 1 %-epinephrine 1:100,000 injection solution Performing Provider: Harpreet Swenson MD Performing Location: [facility] Administered by: Harpreet Swenson MD on 08/13/23 10:52 Dose Route Admin Location Dispensed Lot Number Expiration Date [facility] Supervisor Record Press 10 mL Infiltration 10 mL Assessment & Plan Assessment & Plan (1) Lipoma: Code(s): D17.9 - Benign lipomatous neoplasm, unspecified Plan: Patient has been given very specific local instructions including ice to the wound periodically, no strenuous activities, shower in 2 days, Tylenol or Motrin p.r.n.. All questions answered. Patient will see me as directed or p.r.n. Orders: Orders AMB Excision Today D17.9 - Benign lipomatous neoplasm, unspecified Coding Level of Care Code New Pt Level 5 (50254) Diagnoses Lipoma D17.9 CPT Codes Trunk/Arms/Legs - CPT: 48929-rzteu/arms/legs >4cm ([id number])
[2023-08-13 10:10] VITALS: BP 154/79; PULSE 72; BMI 27.9
== END 2023-08-13 10:53 | disposition home or self-care (01) ==
PROVIDERS: PCP Physician Assistant; Referring Provider Physician Assistant; Visit Provider Surgery
DX: D17.9 Benign lipomatous neoplasm, unspecified (principal)
CPT/HCPCS: 11406; 99204

== ENCOUNTER 2023-08-13 10:06 | Outpatient (REF) | payer BC, SELFPAY | END 2023-08-13 10:07 | disposition home or self-care (01) | LOC: HO.LNP 10:06 | PROVIDERS: PCP Physician Assistant; Referring Provider Physician Assistant; Visit Provider Surgery | DX: D17.1 Benign lipomatous neoplasm of skin and subcutaneous tissue of trunk (principal) | CPT/HCPCS: 11406; 88304 ==

== ENCOUNTER 2023-08-20 10:14 | Outpatient (AMB) | payer BC, SELFPAY ==
--- NOTE | 2023-08-20 10:18 | MHC.OFFVISCO ---
Intake Intake Visit Reasons: s/p excision of abdominal lipoma Intake Note: Patient here s/p WLE on Rt lower abd. Reports incision healing well. Patient c/o: SX: 08-13-23. Coater Smoking Pipe Required: No Accompanied by: Self / Same As Patient Allergies No Known Allergies Allergy (Verified 08/20/23 10:18) Anti-Coag Initial Assessment Social Hx Patient Tobacco Use Status: Never used Tobacco Tobacco use type: Cigarette alcohol intake: current Alcohol intake frequency: 3 or more drinks per day Anti-Coag. Education Record Coater Smoking Pipe Required: No Education Intervention/Brief Description of Teaching 9. Demonstrates understanding of notifying all providers of pending dental 10. Able to state Home Care instructions Coding
--- NOTE | 2023-08-20 10:32 | A.OFFVIS_ITS ---
Intake Intake Visit Reasons: s/p excision of abdominal lipoma Allergies No Known Allergies Allergy (Verified 08/20/23 10:18) HPI HPI Comments History of Present Illness Details Patient presents for follow-up. He has no wound issues or complaints. Pathology is benign [facility] Surgical History (Updated 08/20/23 @ 10:33 by Harpreet Swenson MD) Hx of surgical procedure (08/13/23) No pertinent past surgical history Family History Father Alive and well Mother Allergies Paternal Grandfather No problems noted. Brother Alive and well Brother Cystic fibrosis carrier Maternal Grandfather Hypertension Diabetes mellitus, type II Melanoma Social History Housing: House Alcohol intake: current Alcohol intake frequency: 3 or more drinks per day Alcohol type: hard liquor Patient Tobacco Use Status: Never used Tobacco Tobacco use type: Cigarette e-Cigarette/Vaping Use: Never Used Second Hand Smoke Exposure: No Substance Use Type: Marijuana service: No Current occupational status: employed Current occupation: Works with [employer] Cognitive needs: No Hearing needs: No Vision needs: No Physical Exam GI Other: Abdomen is soft. Wound clean dry and intact healing well Assessment & Plan Assessment & Plan (1) Postop check: Code(s): Z09 - Encounter for follow-up examination after completed treatment for conditions other than malignant neoplasm Plan Patient has been given very specific local instructions including avoiding strenuous activities next 1-2 weeks time and will otherwise follow-up p.r.n.. All questions answered. Coding Level of Care Code Global (84905) Diagnoses Postop check Z09
== END 2023-08-20 10:32 | disposition home or self-care (01) ==
PROVIDERS: PCP Physician Assistant; Visit Provider Surgery
DX: Z09 Encounter for follow-up examination after completed treatment for conditions other than malignant neoplasm (principal)
CPT/HCPCS: 99024

== ENCOUNTER → 2023-08-20 10:14 | Outpatient (BNVA) | payer BC, SELFPAY | PROVIDERS: PCP Physician Assistant; Visit Provider Surgery ==

== ENCOUNTER 2024-08-31 13:03 | Outpatient (REF) | payer OTHER, SELFPAY ==
[2024-09-01 08:32] LABS: HBS Num1 37.23 mIU/mL (0-7.99); HBsAGNum1 0.39 S/CO (0.00-0.99); HIV AB/AG Nonreactive (Nonreactive); HIV Num 1 0.06 S/CO (0.00-0.99); Hepatitis B Surface Antigen Negative (Negative); ~HepC Num1 0.19 S/CO (0.00-0.79); ~Hepatitis B Surface Antibody REACTIVE (Nonreactive); ~Hepatitis C Antibody Nonreactive (Nonreactive)
== END 2024-08-31 13:04 | disposition home or self-care (01) ==
LOC: HO.LAB 13:03
PROVIDERS: PCP Physician Assistant; Visit Provider Hospitalist
DX: Z20.2 Contact with and (suspected) exposure to infections with a predominantly sexual mode of transmission (principal)
CPT/HCPCS: 36415; 86706; 86803; 87340; 87389